=== PATIENT | male | born 1940 | race Caucasian/White ===

== ENCOUNTER 2016-10-22 10:14 | Emergency (ER) | payer MEDICARE, OTHER ==
[2016-10-22 09:49] LABS: BILIRUBIN NEGATIVE (NEGATIVE); BLOOD 2+ Ery/uL (NEGATIVE); CLARITY CLEAR (CLEAR); COLOR YELLOW (YELLOW); GLUCOSE (U) NORMAL (NORMAL); KETONE (U) NEGATIVE (NEGATIVE); LEUKOCYTES NEGATIVE Leu/uL (NEGATIVE); NITRITE NEGATIVE (NEGATIVE); PROTEIN 3+ mg/dL (NEGATIVE); SPECIFIC GRAVITY 1.025 (1.001-1.030); pH 5.5 (5.0-9.0)
[2016-10-22 09:54] LABS: URINARY RBC RARE
[2016-10-22 09:55] LABS: AMORPHOUS URATES CRYSTALS MODERATE
[2016-10-22 10:06] LABS: BASOPHIL 0.1 % (0-2); EOSINOPHIL 0.4 % (0-7); HCT 31.8 % (42.0-52.0); HGB 10.1 g/dl (13.2-18.0); LYMPHOCYTE 2.6 % (15-48); MCH 28.5 pg (25.0-31.0); MCHC 31.8 g/dL (32.0-36.0); MCV 89.6 fL (78.0-100.0); MONOCYTE 2.6 % (0-12); MPV 9.9 fL (6.0-9.5); NEUTROPHIL 94.3 % (41-80); PLT 210 K/uL (150-400); RBC 3.55 M/uL (4.70-6.00); RDW 17.3 % (11.5-14.0); WBC 16.6 K/uL (4.0-10.5)
[2016-10-22 10:17] LABS: INR 0.94 (0.9-1.2); PROTHROMBIN TIME 12.2 SECONDS (11.7-14.0)
[2016-10-22 10:25] LABS: ALBUMIN 3.1 g/dL (3.4-4.8); BILIRUBIN - TOTAL 1.1 mg/dL (0.1-1.0); CREATININE 1.9 mg/dL (0.7-1.2); GLOBULIN (CALCULATION) 2.5 g/dL (2.2-4.2); TOTAL PROTEIN 5.6 g/dL (6.4-8.3)
[2016-10-22 10:27] LABS: TROPONIN T 0.043 ng/mL
== END 2016-10-22 16:09 | disposition other institution (70) ==
LOC: FER 10:14
PROVIDERS: Emergency Medicine
DX: J18.9 Pneumonia, unspecified organism (principal); E83.51 Hypocalcemia; E03.9 Hypothyroidism, unspecified; Z88.6 Allergy status to analgesic agent; Z88.1 Allergy status to other antibiotic agents; Z88.8 Allergy status to other drugs, medicaments and biological substances; Z94.4 Liver transplant status; Z95.4 Presence of other heart-valve replacement
CPT/HCPCS: 36415; 70450; 71010; 80053; 81001; 83605; 83880; 84443; 84484; 85025; 85610; 87040; 87088; 87804; 87899; 93005; J0610; J0692

== ENCOUNTER 2017-01-14 23:13 | Emergency (ER) | payer MEDICARE, OTHER ==
[2017-01-15 00:24] LABS: BASOPHIL 0.4 % (0-2); EOSINOPHIL 1.5 % (0-7); HCT 29.4 % (42.0-52.0); HGB 9.6 g/dl (13.2-18.0); LYMPHOCYTE 9.5 % (15-48); MCH 29.5 pg (25.0-31.0); MCHC 32.7 g/dL (32.0-36.0); MCV 90.5 fL (78.0-100.0); MONOCYTE 6.4 % (0-12); NEUTROPHIL 82.2 % (41-80); PLT 186 K/uL (150-400); RBC 3.25 M/uL (4.70-6.00); RDW 15.8 % (11.5-14.0); WBC 7.6 K/uL (4.0-10.5)
[2017-01-15 00:36] LABS: INR 2.52 (0.9-1.2); PROTHROMBIN TIME 26.5 SECONDS (11.7-14.0); PTT 35.1 SECONDS (23.2-31.4)
[2017-01-15 00:42] LABS: ALBUMIN 2.9 g/dL (3.4-4.8); BILIRUBIN - TOTAL 0.2 mg/dL (0.1-1.0); CREATININE 2.1 mg/dL (0.7-1.2); GLOBULIN (CALCULATION) 2.8 g/dL (2.2-4.2); MAGNESIUM 1.52 mg/dL (1.40-2.10); POTASSIUM 4.3 mmol/L (3.5-5.1); TOTAL PROTEIN 5.7 g/dL (6.4-8.3)
== END 2017-01-15 02:10 | disposition home or self-care (01) ==
LOC: FER 23:13
PROVIDERS: Emergency Medicine
DX: M17.12 Unilateral primary osteoarthritis, left knee (principal); N18.9 Chronic kidney disease, unspecified; I51.9 Heart disease, unspecified; Z85.05 Personal history of malignant neoplasm of liver; Z85.830 Personal history of malignant neoplasm of bone; Z95.2 Presence of prosthetic heart valve; Z88.1 Allergy status to other antibiotic agents; Z88.8 Allergy status to other drugs, medicaments and biological substances
CPT/HCPCS: 36415; 71010; 73552; 80053; 83735; 84100; 85025; 85610; 85730; J1170; J2270; J2405

== ENCOUNTER 2017-02-05 00:04 | Emergency (ER) | payer MEDICARE, OTHER ==
[2017-02-05 00:48] LABS: BASOPHIL 0.3 % (0-2); EOSINOPHIL 2.4 % (0-7); HCT 28.7 % (42.0-52.0); HGB 9.1 g/dl (13.2-18.0); MCH 29.2 pg (25.0-31.0); MCHC 31.7 g/dL (32.0-36.0); MONOCYTE 7.1 % (0-12); MPV 9.9 fL (6.0-9.5); NEUTROPHIL 79.2 % (41-80); PLT 284 K/uL (150-400); RBC 3.12 M/uL (4.70-6.00); RDW 16.2 % (11.5-14.0); WBC 6.2 K/uL (4.0-10.5)
[2017-02-05 01:00] LABS: ALBUMIN 3.2 g/dL (3.4-4.8); BILIRUBIN - TOTAL 0.4 mg/dL (0.1-1.0); CREATININE 2.4 mg/dL (0.7-1.2); GLOBULIN (CALCULATION) 3.2 g/dL (2.2-4.2); MAGNESIUM 2.18 mg/dL (1.40-2.10); PHOSPHORUS 3.4 mg/dL (2.7-4.5); POTASSIUM 5.3 mmol/L (3.5-5.1); TOTAL PROTEIN 6.4 g/dL (6.4-8.3)
[2017-02-05 03:53] LABS: CREATININE 2.3 mg/dL (0.7-1.2); POTASSIUM 5.3 mmol/L (3.5-5.1)
== END 2017-02-05 05:00 | disposition home or self-care (01) ==
LOC: FER 00:04
PROVIDERS: Emergency Medicine Emergency Medical Services; Nurse Practitioner Family
DX: M25.552 Pain in left hip (principal); M25.551 Pain in right hip; G89.29 Other chronic pain; N17.9 Acute kidney failure, unspecified; E86.0 Dehydration; C22.8 Malignant neoplasm of liver, primary, unspecified as to type; C79.89 Secondary malignant neoplasm of other specified sites; N18.9 Chronic kidney disease, unspecified; Z88.1 Allergy status to other antibiotic agents; Z88.8 Allergy status to other drugs, medicaments and biological substances; Z79.82 Long term (current) use of aspirin; Z79.4 Long term (current) use of insulin; Z79.52 Long term (current) use of systemic steroids; Z79.01 Long term (current) use of anticoagulants; Z79.899 Other long term (current) drug therapy; Z95.5 Presence of coronary angioplasty implant and graft; Z95.2 Presence of prosthetic heart valve
CPT/HCPCS: 36415; 72192; 80048; 80053; 83735; 84100; 85025; J1170; J2405; J2800